=== PATIENT | male | born 1970 | race Caucasian/White ===

== ENCOUNTER 2016-10-15 12:34 | Emergency (ER) | payer SELFPAY ==
[~2016-10-15] VITALS: Ht 182.9 cm; Wt 86.2 kg
[2016-10-15 13:08] VITALS: BP 126/85
== END 2016-10-15 14:02 | disposition home or self-care (01) ==
LOC: ED 12:34
DX: L03.116 Cellulitis of left lower limb (principal); L03.113 Cellulitis of right upper limb; I10 Essential (primary) hypertension; E78.00 Pure hypercholesterolemia, unspecified; I25.10 Atherosclerotic heart disease of native coronary artery without angina pectoris; Z88.0 Allergy status to penicillin
CPT/HCPCS: 90715

== ENCOUNTER 2016-12-09 16:58 | Emergency (ER) | payer OTHER | END 2016-12-09 19:00 | disposition other institution (70) | LOC: ED 16:58 | DX: Z02.89 Encounter for other administrative examinations (principal); R07.89 Other chest pain; L02.414 Cutaneous abscess of left upper limb; I10 Essential (primary) hypertension; Z86.79 Personal history of other diseases of the circulatory system ==

== ENCOUNTER 2016-12-09 16:58 | Emergency (ER) | payer SELFPAY ==
[~2016-12-09] VITALS: Ht 182.9 cm; Wt 97.5 kg
[2016-12-09 19:46] VITALS: BP 121/78
== END 2016-12-09 19:00 | disposition other institution (70) ==
LOC: ED 16:58
DX: L02.414 Cutaneous abscess of left upper limb (principal); R07.89 Other chest pain; I10 Essential (primary) hypertension; F19.90 Other psychoactive substance use, unspecified, uncomplicated; Z86.79 Personal history of other diseases of the circulatory system
CPT/HCPCS: J2001

== ENCOUNTER 2017-06-29 11:08 | Emergency (ER) | payer SELFPAY ==
[~2017-06-29] VITALS: Ht 182.9 cm; Wt 93.4 kg
[2017-06-29 11:10] VITALS: Ht 182.9 cm; Wt 93.4 kg
[2017-06-29 13:17] VITALS: BP 169/77
== END 2017-06-29 13:17 | disposition other institution (70) ==
LOC: ED 11:08
DX: S40.011A Contusion of right shoulder, initial encounter (principal); I10 Essential (primary) hypertension; Z88.0 Allergy status to penicillin; X58.XXXA Exposure to other specified factors, initial encounter; Y93.89 Activity, other specified; Y92.89 Other specified places as the place of occurrence of the external cause; Y99.8 Other external cause status

== ENCOUNTER 2017-06-29 11:08 | Emergency (ER) | payer OTHER | END 2017-06-29 13:17 | disposition other institution (70) | LOC: ED 11:08 | DX: Z02.89 Encounter for other administrative examinations (principal) ==